=== PATIENT | female | born 1975 | race Caucasian/White ===

== ENCOUNTER 2017-02-05 00:18 | Inpatient (IN) | payer OTHER ==
[~2017-02-05] VITALS: Ht 165.1 cm; Wt 60.4 kg
[~2017-02-05 00:18] MED LIST: 'PARAFON FORTE500 M1 PO; ANAPROX DS550 MG PO; AUGMENTIN 500500 MG PO; BUPRENORPHINE HY2 MG SL; CEPHALEXIN500 M1 PO; CLEOCIN150 MG PO; CLINDAMYCIN HC300 MG PO; DIFLUCAN150 MG PO; FLEXERIL10 MG PO; FLEXERIL5 MG PO; HYDROCODONE BIT1 T11 PO; IBU-6600 MG PO; LEVAQUIN750 M1 PO; LEVOFLOXACIN500 MG PO; MEDROL DOSEPAK4 MG PO; MOTRIN800 MG PO; Motrin,Rufen800 MG PO; NAPROSYN500 MG PO; NORCO 325 MG-51 TAB PO; OXYCONTIN10 MG PO; PERCOCET 325 MG1 TA2 PO; PYRIDIUM200 M1 PO; SKELAXIN800 MG PO; TRAMADOL HCL50 MG PO; TYLENOL W/CODEI1 TA2 PO; VANCO 1 GR1 GM/250 M IV; VIBRAMYCIN100 MG PO; VICO10300 PO; VICODIN 500 MG-1 TAB PO; VICODIN ES 7501 TAB PO; VOLTAREN50 M1 PO; ZOFRAN4 MG PO; ZOSYN1 SO1 IV
[2017-02-05 00:29] VITALS: BP 138/84
[2017-02-05 00:58] VITALS: BP 125/59
[2017-02-05 04:44] VITALS: BP 120/78
[2017-02-05 05:08] LABS: BILIRUBIN NEGATIVE (NEGATIVE); BLOOD TRACE-LYSED (NEGATIVE); CLARITY SL CLOUDY (CLEAR); COLOR YELLOW (YELLOW); GLUCOSE NEGATIVE (NEGATIVE); KETONE NEGATIVE (NEGATIVE); LEUKO ESTERASE TRACE (NEGATIVE); NITRITE NEGATIVE (NEGATIVE); PROTEIN NEGATIVE (NEGATIVE); UROBILINOGEN 0.2 E.U./dl (0.2-1.0)
[2017-02-05 05:18] LABS: URINE AMPHETAMINES < 1000 (1000ng/ml); URINE BARBITURATES < 200 (200ng/ml); URINE COCAINE > 300 (300ng/ml)
[2017-02-05 05:21] LABS: BACTERIA 1+; URINE REFLEX COMMENT YES (NO)
[2017-02-05 08:13] VITALS: BP 129/63
[2017-02-05 08:20] LABS: BASO % 0.2 % (0.0-1.0); EOS % 0.1 % (1.0-4.0); IG # 0.1 10*3/uL (0.0-0.1); LYMPH # 1.7 10*3/uL (1.3-4.4); LYMPH % 8.8 % (27.0-41.0); MEAN CELL VOLUME 85.5 fl (81.0-99.0); MEAN CORPUSCULAR HGB 28.5 pg (27.0-31.0); MEAN CORPUSCULAR HGB CONC 33.3 g/dl (33.0-37.0); MEAN PLATELET VOLUME 9.4 fl (9.6-12.3); MONO # 1.1 10*3/uL (0.1-1.0); MONO % 5.5 % (3.0-9.0); NEUT # 16.6 10*3/uL (2.3-7.9); PLATELET COUNT AUTOMATED 228 10*3/uL (130-400); RED BLOOD COUNT 4.56 10*6/uL (4.10-5.10); RED CELL DISTRI WIDTH 13.7 % (0-14.5); WHITE BLOOD COUNT 19.5 10*3/uL (4.8-10.8)
[2017-02-05 08:56] LABS: ALBUMIN 3.2 gm/dl (3.1-4.5); ALKALINE PHOSPHATASE 60 U/L (45-117); BILIRUBIN, TOTAL 0.9 mg/dl (0.2-1.0); BUN 11 mg/dl (7-24); CARBON DIOXIDE 22 mmol/L (21-32); CHLORIDE 103 mmol/L (98-107); EST GLOM FILT AFRICAN AMERICAN > 60 ml/min; GLUCOSE 118 mg/dL (65-99); POTASSIUM 3.9 mmol/L (3.5-5.1); SGOT/AST 39 IU/L (3-35); SGPT/ALT 59 U/L (12-78); SODIUM 135 mmol/L (136-145); TOTAL PROTEIN 7.2 gm/dL (6.4-8.2)
[2017-02-05 12:50] VITALS: BP 130/74
== END 2017-02-05 13:10 | disposition left against medical advice (07) | DRG 872 ==
LOC: ED 00:18 → EDHOLD 02:26 → 5E 02:56
PROVIDERS: Emergency Medicine
DX: A41.9 Sepsis, unspecified organism (principal); F11.10 Opioid abuse, uncomplicated; L03.113 Cellulitis of right upper limb; F41.9 Anxiety disorder, unspecified; G43.909 Migraine, unspecified, not intractable, without status migrainosus; Z80.0 Family history of malignant neoplasm of digestive organs; Z71.6 Tobacco abuse counseling; F14.10 Cocaine abuse, uncomplicated; L98.499 Non-pressure chronic ulcer of skin of other sites with unspecified severity; Z98.51 Tubal ligation status; Z53.21 Procedure and treatment not carried out due to patient leaving prior to being seen by health care provider

== ENCOUNTER 2018-10-13 21:24 | Inpatient (IN) | payer OTHER ==
[~2018-10-13] VITALS: Ht 167.6 cm; Wt 63.6 kg
--- NOTE | ~2018-10-13 | EKG ---
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
[2018-10-13 21:29] VITALS: BP 170/100
[2018-10-13 22:47] LABS: BASO # 0.1 10*3/uL (0.0-0.1); BASO % 0.7 % (0.0-1.0); EOS # 0.2 10*3/uL (0.0-0.4); EOS % 2.4 % (1.0-4.0); HEMATOCRIT 37.8 % (37.0-47.0); HEMOGLOBIN 11.7 g/dl (12.0-16.0); LYMPH # 2.7 10*3/uL (1.3-4.4); MEAN CELL VOLUME 87.9 fl (81.0-99.0); MEAN CORPUSCULAR HGB 27.2 pg (27.0-31.0); MEAN PLATELET VOLUME 9.2 fl (9.6-12.3); MONO # 0.8 10*3/uL (0.1-1.0); MONO % 8.5 % (3.0-9.0); NEUT # 5.3 10*3/uL (2.3-7.9); NEUT % 58.2 % (47.0-73.0); PLATELET COUNT AUTOMATED 252 10*3/uL (130-400); WHITE BLOOD COUNT 9.1 10*3/uL (4.8-10.8)
[2018-10-13 23:10] LABS: ALBUMIN 3.2 gm/dl (3.1-4.5); ALKALINE PHOSPHATASE 64 U/L (45-117); BUN 11 mg/dl (7-24); CHLORIDE 103 mmol/L (98-107); CREATININE 0.82 mg/dL (0.55-1.02); POTASSIUM 3.4 mmol/L (3.5-5.1); SGOT/AST 49 IU/L (3-35); SGPT/ALT 60 U/L (12-78); SODIUM 138 mmol/L (136-145); TOTAL PROTEIN 7.6 gm/dL (6.4-8.2)
--- NOTE | 2018-10-13 23:27 | NUR ---
NURSE TO NURSE REPORT. UNABLE TO GET IV ACCESS PER PRIOR SHIFT. PATIENT UNABLE TO GIVE URINE SPECIMEN AT THIS TIME. WILL CONTINUE TO MONITOR.
[2018-10-14 00:38] LABS: BILIRUBIN NEGATIVE (NEGATIVE); BLOOD NEGATIVE (NEGATIVE); CLARITY SL CLOUDY (CLEAR); COLOR YELLOW (YELLOW); GLUCOSE NEGATIVE (NEGATIVE); KETONE NEGATIVE (NEGATIVE); LEUKO ESTERASE 1+ (NEGATIVE); NITRITE NEGATIVE (NEGATIVE); SPECIFIC GRAVITY <= 1.005 (1.005-1.030); UROBILINOGEN 0.2 E.U./dl (0.2-1.0)
[2018-10-14 00:47] LABS: EPITHELIAL CELLS 20-25; URINE AMPHETAMINES < 1000 (1000ng/ml); URINE BARBITURATES < 200 (200ng/ml); URINE BENZODIAZEPINES < 200 (200ng/ml); URINE CANNABINOIDS (THC) < 50 (50ng/ml); URINE COCAINE > 300 (300ng/ml); URINE METHADONE < 300 (300ng/ml); URINE OPIATES > 300 (300ng/ml); WBC 21-30 wbc/hpf (0-5)
[2018-10-14 00:50] LABS: URINE PHENCYCLIDINE < 25 (25ng/ml)
--- NOTE | 2018-10-14 02:41 | NUR ---
ATTEMPTED X4 IV ACCESS BY MULTIPLE RN'S. RESIDENT NOTIFIED.
[2018-10-14 03:02] VITALS: BP 156/87
[2018-10-14 04:15] VITALS: BP 150/76
--- NOTE | 2018-10-14 04:15 | NUR ---
Time: 414 A 43 year old FEMALE admitted to 4E under services of STEVE CAMPA DO. Pt. arrived via bed from ER. Chief complaint: EDEMA BUE. KASIA BAZZI
--- NOTE | 2018-10-14 05:10 | NUR ---
NOTIFIED DR STEEL OF PATIENTS WOUNDS AND NEEDING WOUND CARE ORDERS.
[2018-10-14 08:00] VITALS: BP 135/83
[2018-10-14 12:00] VITALS: BP 146/89
[2018-10-14 16:00] VITALS: BP 143/81
--- NOTE | 2018-10-14 17:27 | NUR ---
MSPatient signed out AMA. Patient encouraged to stay and advised of possible consequences of premature discharge. Physician and foreman or supervisor and operator JACK notified. Patient instructed what to do regarding care post-departure from the hospital; emergency phone numbers provided. Patent was accompanied by SELF. BRIDGETTE TODD
--- NOTE | 2018-10-14 19:50 | NUR ---
INFORMED DR PEÑA ABOUT POSTIVE BLOOD CULTURE RESULT AND GAVE PHONE NUMBER TO CONTACT THE PT.
--- NOTE | 2018-10-16 09:49 | NUR ---
HOSPITALIST CALLED AND GIVEN POSITIVE BLOOD CULTURE RESULTS.
--- NOTE | 2018-10-19 06:02 | NUR ---
MARY DINERO [id number] Please refer to the physician's history and physical for past medical history, comorbid conditions, and allergies. Diagnosis: CELLULITIS,POLYSUBSTANCE ABUSE Vipul Score: 23,LOW OR NO RISK WOUND DESCRIPTIONS: Several parital and full thickness areas located to bilateral arm and face. Patient states she picks herself due to anxiety and she can't help it. She stated that she doesn't want any treatment and she stated that she doesn't want me to look any where expect her face and arms. Patient stated she will continue to care for these areas at home and doesn't need follow up care. Surface the patient is resting on: Isoflex SKIN PREVENTION RECOMMENDATION: 1. Pressure redistribution support surface as appropriate 2. Elevate heels 3. Remove boots/TEDS every shift and reapply 4. Head of bed 30 degrees as tolerated 5. Assess nutrition and hydration 6. Manage moisture 7. Avoid the use of containment devices while in bed 8. Use absorptive products on surfaces limit layers of linens on bed 9. Turn and reposition every 1-2 hours in bed and every 1 hour in chair as tolerated 10. Weight shifts every 15 minutes while up in chair 11. Offloading with pillows or device to keep heels elevated off bed 12. Monitor skin at least every shift 13. Inspect under medical devices twice a day WOUND TREATMENT RECOMMENDATIONS: Patient refused at this time.
== END 2018-10-14 17:27 | disposition left against medical advice (07) | DRG 603 ==
LOC: ED 21:24 → EDHOLD 10-14 02:35 → 4E 10-14 03:14
PROVIDERS: Emergency Medicine; ADMIT Internal Medicine
DX: L03.114 Cellulitis of left upper limb (principal); L03.113 Cellulitis of right upper limb; F11.10 Opioid abuse, uncomplicated; L98.491 Non-pressure chronic ulcer of skin of other sites limited to breakdown of skin; F14.10 Cocaine abuse, uncomplicated; G43.909 Migraine, unspecified, not intractable, without status migrainosus; I10 Essential (primary) hypertension; Z53.21 Procedure and treatment not carried out due to patient leaving prior to being seen by health care provider; Z82.3 Family history of stroke; Z87.891 Personal history of nicotine dependence; Z98.51 Tubal ligation status; Z82.49 Family history of ischemic heart disease and other diseases of the circulatory system; Z83.3 Family history of diabetes mellitus; Z80.0 Family history of malignant neoplasm of digestive organs

== ENCOUNTER 2020-01-22 12:19 | Emergency (ER) | payer OTHER ==
[~2020-01-22] VITALS: Ht 167.6 cm; Wt 70.8 kg
[2020-01-22 12:41] VITALS: BP 126/72
== END 2020-01-22 13:34 | disposition home or self-care (01) ==
LOC: ED 12:19
DX: R22.0 Localized swelling, mass and lump, head (principal)

== ENCOUNTER → 2020-08-04 | Outpatient (CLI) | payer OTHER ==
[~2020-08-04] MED LIST changes: +SEPTDS PO
== END | disposition home or self-care (01) ==
LOC: COVID19 15:13
PROVIDERS: ATTEND Nurse Practitioner Family
DX: Z20.822 Contact with and (suspected) exposure to COVID-19 (principal)

== ENCOUNTER 2020-09-05 15:58 | Emergency (ER) | payer OTHER ==
[~2020-09-05] VITALS: Ht 167.6 cm; Wt 74.8 kg
[~2020-09-05 15:58] MED LIST changes: -SEPTDS PO
[2020-09-05 16:10] VITALS: BP 153/95
[2020-09-05] MEDS ORDERED: CEPHALEXIN500 M1 PO (16:31)
[2020-09-05] MEDS ORDERED: SEPTDS PO (16:31)
[2020-09-05] MEDS ORDERED: DIFLUCAN150 MG PO (16:32)
== END 2020-09-05 16:38 | disposition home or self-care (01) ==
LOC: ED 15:58
DX: L03.211 Cellulitis of face (principal); Z98.51 Tubal ligation status; Z98.890 Other specified postprocedural states

== ENCOUNTER 2020-10-03 19:52 | Emergency (ER) | payer OTHER ==
[~2020-10-03] VITALS: Ht 167.6 cm; Wt 71.7 kg
[~2020-10-03 19:52] MED LIST changes: +SEPTDS PO
[2020-10-03 19:57] VITALS: BP 152/75
== END 2020-10-03 23:07 | disposition home or self-care (01) ==
LOC: ED 19:52
DX: S76.211A Strain of adductor muscle, fascia and tendon of right thigh, initial encounter (principal); R22.41 Localized swelling, mass and lump, right lower limb; I10 Essential (primary) hypertension; G43.909 Migraine, unspecified, not intractable, without status migrainosus; F17.200 Nicotine dependence, unspecified, uncomplicated; F14.10 Cocaine abuse, uncomplicated; Z98.51 Tubal ligation status; Z98.890 Other specified postprocedural states; W01.0XXA Fall on same level from slipping, tripping and stumbling without subsequent striking against object, initial encounter; Y93.89 Activity, other specified; Y92.89 Other specified places as the place of occurrence of the external cause; Y99.9 Unspecified external cause status

== ENCOUNTER 2021-03-01 17:01 | Emergency (ER) | payer OTHER ==
[~2021-03-01] VITALS: Wt 72.6 kg
[2021-03-01 17:07] VITALS: BP 132/96
[2021-03-01] MEDS ORDERED: DOXYCYCLINE100 M3 PO (17:16)
== END 2021-03-01 17:14 | disposition home or self-care (01) ==
LOC: ED 17:01
DX: L03.114 Cellulitis of left upper limb (principal); F17.200 Nicotine dependence, unspecified, uncomplicated; Z79.2 Long term (current) use of antibiotics; Z79.899 Other long term (current) drug therapy; Z98.51 Tubal ligation status; Z98.890 Other specified postprocedural states

== ENCOUNTER 2021-05-10 15:47 | Emergency (ER) | payer OTHER ==
[~2021-05-10] VITALS: Ht 167.6 cm; Wt 74.4 kg
[~2021-05-10 15:47] MED LIST changes: +DOXYCYCLINE100 M3 PO
[2021-05-10 15:56] VITALS: BP 139/91
== END 2021-05-10 17:45 | disposition left against medical advice (07) ==
LOC: ED 15:47
DX: M25.511 Pain in right shoulder (principal); Z53.21 Procedure and treatment not carried out due to patient leaving prior to being seen by health care provider

== ENCOUNTER 2022-03-16 16:38 | Emergency (ER) | payer OTHER | END 2022-03-16 18:07 | disposition left against medical advice (07) | LOC: ED 16:38 | DX: L72.8 Other follicular cysts of the skin and subcutaneous tissue (principal); Z53.21 Procedure and treatment not carried out due to patient leaving prior to being seen by health care provider ==

== ENCOUNTER 2022-03-20 15:36 | Emergency (ER) | payer OTHER ==
[~2022-03-20] VITALS: Ht 170.1 cm; Wt 65.8 kg
[2022-03-20 15:42] VITALS: BP 137/89
== END 2022-03-20 18:08 | disposition left against medical advice (07) ==
LOC: ED 15:36
DX: L98.9 Disorder of the skin and subcutaneous tissue, unspecified (principal); Z53.21 Procedure and treatment not carried out due to patient leaving prior to being seen by health care provider

== ENCOUNTER 2022-08-24 19:02 | Emergency (ER) | payer OTHER ==
[~2022-08-24] VITALS: Ht 167.6 cm; Wt 74.8 kg
[2022-08-24 19:19] VITALS: BP 133/94
[2022-08-24] MEDS ORDERED: ZESTRIL10 MG PO (19:33)
[2022-08-24] MEDS ORDERED: CLINDAMYCIN HC300 MG PO (20:48)
[2022-08-24] MEDS ORDERED: HYDROCODONE-AC1 EAC1 PO (20:48)
[2022-08-24] MEDS ORDERED: CEPHALEXIN500 M1 PO (20:48)
== END 2022-08-24 21:16 | disposition home or self-care (01) ==
LOC: ED 19:02
DX: H00.031 Abscess of right upper eyelid (principal); Z98.51 Tubal ligation status; Z98.890 Other specified postprocedural states; F17.200 Nicotine dependence, unspecified, uncomplicated; F19.10 Other psychoactive substance abuse, uncomplicated

== ENCOUNTER 2022-10-29 16:32 | Emergency (ER) | payer MEDICAID ==
[~2022-10-29] VITALS: Ht 157.5 cm; Wt 72.6 kg
[~2022-10-29 16:32] MED LIST changes: +HYDROCODONE-AC1 EAC1 PO; +ZESTRIL10 MG PO
[2022-10-29 16:52] VITALS: BP 128/76
[2022-10-29] MEDS ORDERED: NAPROSYN500 MG PO (18:47)
[2022-10-29] MEDS ORDERED: MEDROL DOSEPAK4 MG PO (18:47)
[2022-10-29] MEDS ORDERED: CYCLOBENZAPRINE5 M3 PO (18:47)
== END 2022-10-29 19:16 | disposition home or self-care (01) ==
LOC: ED 16:32
DX: M54.16 Radiculopathy, lumbar region (principal); Z79.899 Other long term (current) drug therapy; Z98.51 Tubal ligation status; F17.200 Nicotine dependence, unspecified, uncomplicated

== ENCOUNTER 2023-02-01 16:58 | Emergency (ER) | payer MEDICAID ==
[~2023-02-01] VITALS: Ht 167.6 cm; Wt 74.8 kg
[~2023-02-01 16:58] MED LIST changes: +CYCLOBENZAPRINE5 M3 PO
[2023-02-01 17:18] VITALS: BP 132/70
[2023-02-01] MEDS ORDERED: NAPROSYN500 MG PO (17:55)
[2023-02-01] MEDS ORDERED: CYCLOBENZAPRINE5 M3 PO (17:55)
== END 2023-02-01 18:40 | disposition home or self-care (01) ==
LOC: ED 16:58
DX: M54.31 Sciatica, right side (principal); Z98.51 Tubal ligation status; Z98.890 Other specified postprocedural states; F17.200 Nicotine dependence, unspecified, uncomplicated; F19.10 Other psychoactive substance abuse, uncomplicated; F13.10 Sedative, hypnotic or anxiolytic abuse, uncomplicated

== ENCOUNTER 2023-11-25 20:54 | Emergency (ER) | payer OTHER ==
[~2023-11-25] VITALS: Ht 167.6 cm; Wt 72.6 kg
[2023-11-25 21:07] VITALS: BP 149/98
[2023-11-25] MEDS ORDERED: predniSONE 20 MG TAB PO ONE (21:25)
[2023-11-25] MEDS ORDERED: CEPHALEXIN 500 MG CAP PO ONE (21:30)
[2023-11-25] MEDS ORDERED: METHOCARBAMOL 500 MG TAB PO ONE (21:30)
[2023-11-25] MEDS ORDERED: METHOCARBAMOL500 M1 PO (21:39)
[2023-11-25] MEDS ORDERED: PREDNISONE20 M1 PO (21:39)
[2023-11-25] MEDS ORDERED: CEPHALEXIN500 M1 PO (21:39)
== END 2023-11-25 21:50 | disposition home or self-care (01) ==
LOC: ED 20:54
DX: M54.42 Lumbago with sciatica, left side (principal); M54.41 Lumbago with sciatica, right side; M79.641 Pain in right hand; M79.642 Pain in left hand; Z98.51 Tubal ligation status; Z98.890 Other specified postprocedural states; F17.200 Nicotine dependence, unspecified, uncomplicated; F19.10 Other psychoactive substance abuse, uncomplicated; F13.10 Sedative, hypnotic or anxiolytic abuse, uncomplicated

== ENCOUNTER 2025-01-01 17:06 | Emergency (ER) | payer BC ==
[~2025-01-01] VITALS: Ht 162.5 cm; Wt 78.0 kg
[~2025-01-01 17:06] MED LIST changes: +METHOCARBAMOL500 M1 PO; +PREDNISONE20 M1 PO
[2025-01-01 17:45] VITALS: BP 136/88
[2025-01-01] MEDS ORDERED: Acetaminophen/Oxycodone 5 MG/325 MG TABLET PO ONE (18:45)
[2025-01-01] MEDS ORDERED: Ketorolac Tromethamine 30 MG/ML VIAL IM ONE (18:45)
[2025-01-01] MEDS ORDERED: MELOXICAM15 MG PO (18:48)
[2025-01-01] MEDS ORDERED: CYCLOBENZAPRINE10 MG PO (18:48)
== END 2025-01-01 19:39 | disposition home or self-care (01) ==
LOC: ED 17:06
DX: M25.551 Pain in right hip (principal); M54.6 Pain in thoracic spine; F17.200 Nicotine dependence, unspecified, uncomplicated; Z79.899 Other long term (current) drug therapy; Z98.51 Tubal ligation status; Z98.890 Other specified postprocedural states; W18.39XA Other fall on same level, initial encounter; Y93.89 Activity, other specified; Y92.89 Other specified places as the place of occurrence of the external cause; Y99.8 Other external cause status

== ENCOUNTER 2025-02-25 15:39 | Emergency (ER) | payer MEDICAID ==
[~2025-02-25] VITALS: Ht 165.1 cm; Wt 81.6 kg
[~2025-02-25 15:39] MED LIST changes: +CYCLOBENZAPRINE10 MG PO; +MELOXICAM15 MG PO
[2025-02-25 15:53] VITALS: BP 149/95
[2025-02-25] MEDS ORDERED: PREDNISONE20 M1 PO (18:22)
== END 2025-02-25 18:42 | disposition home or self-care (01) ==
LOC: ED 15:39
DX: S80.02XA Contusion of left knee, initial encounter (principal); S80.01XA Contusion of right knee, initial encounter; M54.50 Low back pain, unspecified; G43.909 Migraine, unspecified, not intractable, without status migrainosus; I10 Essential (primary) hypertension; F17.210 Nicotine dependence, cigarettes, uncomplicated; Z98.890 Other specified postprocedural states; Z98.51 Tubal ligation status; Z87.42 Personal history of other diseases of the female genital tract; W18.09XA Striking against other object with subsequent fall, initial encounter; Y93.01 Activity, walking, marching and hiking; Y92.481 Parking lot as the place of occurrence of the external cause; Y99.8 Other external cause status

== ENCOUNTER 2025-03-08 19:14 | Emergency (ER) | payer MEDICAID ==
[~2025-03-08] VITALS: Ht 165.1 cm; Wt 79.4 kg
[2025-03-08] MEDS ORDERED: VIBRAMYCIN100 MG PO (19:49)
[2025-03-08] MEDS ORDERED: Doxycycline Hyclate 100 MG 2 TAB ED PACK PO SCH (19:50)
[2025-03-08] MEDS ORDERED: CEPHALEXIN 500 MG CAP PO ONE (20:00)
[2025-03-08] MEDS ORDERED: CLOBETASOL PROPIONATE 30 GM TUBE T ONE (20:00)
[2025-03-08] MEDS ORDERED: CEPHALEXIN500 M1 PO (20:01)
[2025-03-08 20:57] VITALS: BP 148/96
== END 2025-03-08 20:57 | disposition home or self-care (01) ==
LOC: ED 19:14
DX: L02.416 Cutaneous abscess of left lower limb (principal); L03.011 Cellulitis of right finger; F17.200 Nicotine dependence, unspecified, uncomplicated; Z98.890 Other specified postprocedural states; Z98.51 Tubal ligation status

== ENCOUNTER 2025-05-09 03:56 | Emergency (ER) | payer MEDICAID ==
[~2025-05-09] VITALS: Ht 162.5 cm; Wt 79.4 kg
[2025-05-09 04:03] VITALS: BP 124/77
[2025-05-09] MEDS ORDERED: LISINOPRIL20 MG PO (04:04)
[2025-05-09] MEDS ORDERED: NAPROXEN250 MG PO (05:00)
== END 2025-05-09 05:08 | disposition home or self-care (01) ==
LOC: ED 03:56
DX: M25.561 Pain in right knee (principal); F17.200 Nicotine dependence, unspecified, uncomplicated; Z79.899 Other long term (current) drug therapy; Z98.890 Other specified postprocedural states; W18.39XA Other fall on same level, initial encounter; Y93.89 Activity, other specified; Y92.89 Other specified places as the place of occurrence of the external cause; Y99.8 Other external cause status